=== PATIENT | male | born 2005 | race Hispanic/Latino ===

== ENCOUNTER 2024-06-03 23:49 | Emergency (ER) | payer SELFPAY ==
[2024-06-04 01:03] LABS: SARS-CoV-2 Antigen CONTROL BLUE LINE VIS/BG OK; SARS-CoV-2 Antigen Rapid Res Negative (Negative)
--- NOTE | 2024-06-04 02:11 | RAD REPORT ---
PROCEDURE: XR Chest, 1 View CLINICAL INDICATION: The patient is 18 years old and is Male; Chest pain, cough. TECHNIQUE: Frontal view of the chest. COMPARISON: None. FINDINGS: LUNGS: No discrete focal consolidation. PLEURAL SPACE: No appreciable pleural effusion or pneumothorax. MEDIASTINUM: Nonenlarged cardiomediastinal contour. Prominent right paratracheal knob, with persisten t left-sided aortic knob demonstrated, suspicious for duplicated aortic arch BONES/JOINTS: No acute osseous abnormality. IMPRESSION: 1. No acute cardiopulmonary abnormality. 2. 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 Consider further characterization by nonemergent CTA ch est. Electronically signed by: Jerman Posada MD 06/04/2024 01:21 AM [facility] Due to temporary technical issues with the PACS/First Meta reporting system, reports are being dmitry d by the in-house radiologist without review as a courtesy to ensure prompt reporting the interpreting radiologist is fully responsible for the content of the report. Transcribed Date/Time: 06/04/2024 2:10 AM
--- NOTE | 2024-06-04 02:24 | EDPHYS ---
Physician Documentation [facility] Name: Dave Yoder Age: 18 yrs Sex: Male : 2005 Arrival Date: 06/03/2024 Time: 23:49 Bed DX3 Private MD: ED Physician Matt Villalobos HPI: 06/04 02:19 This 18 yrs old Male presents to ER via Ambulatory with complaints of Cough, bo1 Flu Symptoms. 02:19 The patient or guardian reports cough, Sorethroat. Onset: The symptoms/episode bo1 began/occurred gradually, yesterday. Severity of symptoms: At their worst the symptoms were moderate. Associated signs and symptoms: Pertinent positives: nausea, vomiting, times 1. Exposure to spouse with similar sxs who is here dx with the Flu type A. Historical: - Allergies: 00:25 No Known Allergies; vc1 - Home Meds: 00:25 None [Active]; vc1 - PMHx: 00:25 None; vc1 - PSHx: 00:25 None; vc1 - Immunization history:: Client reports having NOT received the Covid vaccine. Flu vaccine is not up to date. - Infectious Disease History:: Denies. - Social history:: Smoking status: Patient denies any tobacco usage or history of. ROS: 02:20 Constitutional: Negative for weight loss bo1 02:20 Constitutional: Positive for body aches, chills, fever, 02:20 ENT: Positive for sore throat, 02:20 Neck: Negative for pain with movement, pain at rest, 02:20 Cardiovascular: Negative for chest pain, 02:20 Respiratory: Positive for cough, 02:20 Abdomen/GI: Negative for abdominal pain, 02:20 Skin: Negative for rash, 02:20 All other systems are negative, Exam: 02:21 Constitutional: This is a well developed, well nourished patient who is awake, alert, bo1 and in no acute distress. 02:21 Constitutional: The patient appears alert, awake, comfortable, non-toxic, 02:21 Head/face: Exam is negative for acute changes, 02:21 Eyes: Exam is negative for acute changes, 02:21 ENT: Exam is negative for acute changes, Posterior pharynx: erythema, exudate, is not appreciated, 02:21 Neck: External neck: is normal, swelling, is not appreciated, Supple, 02:21 Cardiovascular: Rate: normal, Rhythm: regular, 02:21 Respiratory: the patient does not display signs of respiratory distress, Respirations: normal, Breath sounds: are clear throughout, 02:21 Skin: Exam negative for rash, Vital Signs: 00:23 BP 142 / 93; Pulse 96; Resp 18; Temp 100.7; Pulse Ox 98% ; Weight 99.79 kg; Height 5 vc1 ft. 9 in. ; 00:23 Body Mass Index 32.49 (99.79 kg, 175.26 cm) - Percentile 97.4 % vc1 MDM: 01:04 Medical Screening Exam initiated bo1 02:22 Differential Diagnosis: Influenza Upper Respiratory Infection Viral Syndrome. ED bo1 course: Pt is stable. Spouse with Flu type A and pt will be treated similarly. 02:25 Data reviewed: vital signs, lab test result(s), radiologic studies, plain films. bo1 06/04 00:15 Order name: Flu; Complete Time: 01:12 cp4 06/04 00:15 Order name: SARS RAPID; Complete Time: 01:12 cp4 06/04 00:15 Order name: Strep; Complete Time: 01:12 cp4 06/04 01:06 Order name: Throat Culture EDMS 06/04 00:15 Order name: CXR XRAY cp4 Administered Medications: No medications were administered Disposition Summary: 06/04/24 02:24 Discharge Ordered Notes: Location: Home bo1 Problem: new bo1 Symptoms: are unchanged bo1 Condition: Stable bo1 Diagnosis - Influenza due to identified novel influenza A virus bo1 - Fever, unspecified bo1 Followup: bo1 - With: Private Physician - When: Upon discharge from the Emergency Department - Reason: Recheck today's complaints, Continuance of care Discharge Instructions: - Discharge Summary Sheet bo1 - Fever, Adult bo1 - Influenza, Adult bo1 Forms: - Medication Reconciliation Form bo1 - Antibiotic Education bo1 - Prescription Opioid Use bo1 - Patient Portal Instructions bo1 - Leadership Thank You Letter bo1 Prescriptions: - Tamiflu 75 mg Oral capsule - take 1 tablet ORAL route every 12 hours for 5 days; 10 tablet; Refills: 0, bo1 Product Selection Permitted Signatures: Dispatcher [employer] [facility] Alma Dempsey RN RN vc1 Matt Villalobos MD MD bo1 Corrections: (The following items were deleted from the chart) 00:16 00:16 Influenza Screen (A \T\ B)+BA.LAB.BRZ ordered. EDMS EDMS 00:16 00:16 SARS-COV-2 Antigen Rapid+I.LAB.BRZ ordered. EDMS EDMS 00:16 00:16 Group A Streptococcus Rapid Sc+BA.LAB.BRZ ordered. EDMS EDMS 00:16 00:16 Chest Single View+RAD.RAD.BRZ ordered. EDMS EDMS
--- NOTE | 2024-06-04 02:24 | ER ---
Nurse's Notes [facility] Name: Dave Yoder Age: 18 yrs Sex: Male : 2005 Arrival Date: 06/03/2024 Time: 23:49 Bed DX3 Private MD: Diagnosis: Influenza due to identified novel influenza A virus;Fever, unspecified Presentation: 06/04 00:23 Chief complaint: Patient states: headache, dizzy, vomiting, eyes hurt, chest pain with vc1 cough. Coronavirus screen: Client denies travel out of the [place] in the last 14 days. At this time, the client does not indicate any symptoms associated with coronavirus-19. Ebola Screen: Patient negative for fever greater than or equal to 101.5 degrees Fahrenheit, and additional compatible Ebola Virus Disease symptoms Patient denies exposure to infectious person. Patient denies travel to an Ebola-affected area in the 21 days before illness onset. No symptoms or risks identified at this time. Initial Sepsis Screen: Does the patient meet any 2 criteria? No. Patient's initial sepsis screen is negative. Does the patient have a suspected source of infection? No. Patient's initial sepsis screen is negative. Risk Assessment: Do you want to hurt yourself or someone else? Patient reports no desire to harm self or others. Onset of symptoms was June 02, 2024. Care prior to arrival: None. Activity prior to arrival: vomiting. Mechanism of Injury: No Mechanism of Injury. Transition of care: patient was not received from another setting of care. 00:23 Method Of Arrival: Ambulatory vc1 00:23 Acuity: ZHAO 4 vc1 Triage Assessment: 00:26 General: Appears in no apparent distress. ill, well groomed, well developed, well vc1 nourished, Behavior is calm, cooperative, appropriate for age, Reports fever for feeling ill for 1-2 days. Pain: Complains of pain in throat, head, eyes, chest. EENT: Reports nasal congestion pain when swallowing since pain behind eyes. Neuro: Level of Consciousness is awake, alert, obeys commands, Oriented to person, place, time, situation, Appropriate for age. Cardiovascular: Capillary refill < 3 seconds Patient's skin is warm and dry. Chest pain is described as vague, is aggravated by breathing, coughing. Respiratory: Reports cough that is non-productive, pain with cough Airway is patent Respiratory effort is even, unlabored, Respiratory pattern is regular, symmetrical, Breath sounds are clear bilaterally. the patient has mild shortness of breath. GI: Reports nausea, vomiting. : No deficits noted. No signs and/or symptoms were reported regarding the genitourinary system. Derm: Skin is intact, is healthy with good turgor, Skin is dry, Skin is normal, Skin temperature is warm. Musculoskeletal: Circulation, motion, and sensation intact. Range of motion: intact in all extremities. Historical: - Allergies: 00:25 No Known Allergies; vc1 - Home Meds: 00:25 None [Active]; vc1 - PMHx: 00:25 None; vc1 - PSHx: 00:25 None; vc1 - Immunization history:: Client reports having NOT received the Covid vaccine. Flu vaccine is not up to date. - Infectious Disease History:: Denies. - Social history:: Smoking status: Patient denies any tobacco usage or history of. Screenin:26 [facility] ED Fall Risk Assessment (Adult) History of falling in the last 3 months, vc1 including since admission No falls in past 3 months (0 pts) Confusion or Disorientation No (0 pts) Intoxicated or Sedated No (0 pts) Impaired Gait No (0 pts) Mobility Assist Device Used No (0 pt) Altered Elimination No (0 pt) Score/Fall Risk Level 0 - 2 = Low Risk Oriented to surroundings, Maintained a safe environment, Educated pt \T\ family on fall prevention, incl call for assistance when getting out of bed. Abuse screen: Denies threats or abuse. Nutritional screening: No deficits noted. Tuberculosis screening: No symptoms or risk factors identified. Vital Signs: 00:23 BP 142 / 93; Pulse 96; Resp 18; Temp 100.7; Pulse Ox 98% ; Weight 99.79 kg; Height 5 vc1 ft. 9 in. ; 00:23 Body Mass Index 32.49 (99.79 kg, 175.26 cm) - Percentile 97.4 % vc1 ED Course: 06/03 23:59 Patient arrived in ED. gm2 06/04 00:25 Triage completed. vc1 00:26 Arm band placed on right wrist. vc1 00:28 Patient has correct armband on for positive identification. sitting in diagnostic vc1 chair. Provided Education on: swabs. 00:29 Strep Sent. vc1 00:29 SARS RAPID Sent. vc1 00:29 Flu Sent. vc1 00:41 Strep Sent. vk 00:41 SARS RAPID Sent. vk 00:41 Flu Sent. vk 00:51 CXR XRAY In Process Unspecified. EDMS 01:04 Matt Villalobos MD is Attending Physician. bo1 02:29 No provider procedures requiring assistance completed. Patient did not have IV access vc1 during this emergency room visit. Administered Medications: No medications were administered Medication: 00:29 VIS not applicable for this client. vc1 Outcome: 02:24 Discharge ordered by . bo1 02:29 Discharged to home ambulatory, with significant other, vc1 02:29 Condition: good 02:29 Discharge instructions given to patient, Instructed on discharge instructions, follow up and referral plans. medication usage, Demonstrated understanding of instructions, follow-up care, medications, Prescriptions given X 1, 02:39 Patient left the ED. vc1 Signatures: Dispatcher [employer] [facility] Alma Dempsey RN RN vc1 Adelita Morales 2 Mayuri De Los Santos Matt Villalobos MD MD bo1
[2024-06-04 02:44] VITALS: BP 142/93; TEMP 100.7; O2SAT 98
== END 2024-06-04 02:39 | disposition home or self-care (01) ==
LOC: ER 23:49
DX: J10.1 Influenza due to other identified influenza virus with other respiratory manifestations (principal); Z11.52 Encounter for screening for COVID-19
CPT/HCPCS: 36415; 71045; 87070; 87081; 87804; 87811; 99283

== ENCOUNTER 2024-06-08 22:17 | Emergency (ER) | payer SELFPAY ==
[2024-06-08] MEDS ORDERED: HYDROCODONE/CHLORPHEN 5 ML/OSYR ONE (22:50)
[2024-06-08] MEDS ORDERED: ALBUTEROL 2.5 MG/3 ML NEB SOL ONE (22:51)
[2024-06-08] MEDS ORDERED: ONDANSETRON 4 MG (ODT) TAB ONE (22:51)
[2024-06-08] MEDS ORDERED: IPRATROPIUM BROM 0.5MG/2.5ML ONE (22:51)
[2024-06-09 00:20] LABS: SARS-CoV-2 Antigen CONTROL BLUE LINE VIS/BG OK; SARS-CoV-2 Antigen Rapid Res Negative (Negative)
--- NOTE | 2024-06-09 00:34 | EDPHYS ---
Physician Documentation [facility] Name: Dave Yoder Age: 18 yrs Sex: Male : 2005 Arrival Date: 06/08/2024 Time: 22:17 Bed 23 Private MD: ED Physician Adan Estrada HPI: 06/08 23:00 This 18 yrs old Male presents to ER via Ambulatory with complaints of cp Congestion, Headache, Chest Tightness. 23:00 The patient or guardian reports cough, congestion. cp 23:00 Onset: The symptoms/episode began/occurred 6 day(s) ago. Associated signs and symptoms: cp Pertinent positives: chest pain, with cough, fever, sore throat, headache, Pertinent negatives: diarrhea, vomiting. Severity of symptoms: in the emergency department the symptoms are unchanged despite home interventions. Historical: - Allergies: 22:29 No Known Allergies; me1 - Home Meds: 22:29 None [Active]; me1 - PMHx: 22:29 None; me1 - PSHx: 22:29 None; me1 - Immunization history:: Adult Immunizations up to date. - Infectious Disease History:: Denies. - Social history:: Smoking status: Patient denies any tobacco usage or history of. ROS: 23:05 Constitutional: Positive for body aches, chills, fever, cp 23:05 Eyes: Negative for injury, pain, redness, and discharge, cp 23:05 ENT: Positive for sore throat, Negative for drainage from ear(s), ear pain, difficulty swallowing, difficulty handling secretions, 23:05 Cardiovascular: Positive for chest pain, with cough, 23:05 Respiratory: Positive for cough, 23:05 Abdomen/GI: Positive for nausea and vomiting, Negative for diarrhea, constipation, 23:05 Neuro: Positive for headache, Negative for altered mental status, weakness, 23:05 All other systems are negative, Exam: 23:10 Constitutional: The patient appears in no acute distress, alert, awake, non-toxic, well cp developed, well nourished, obese, 23:10 Head/Face: Normocephalic, atraumatic. cp 23:10 Eyes: Periorbital structures: appear normal, Conjunctiva: normal, no exudate, no injection, Sclera: no appreciated abnormality, Lids and lashes: appear normal, bilaterally, 23:10 ENT: External ear(s): are unremarkable, Ear canal(s): are normal, clear, TM's: dullness, bilaterally, Nose: is normal, Mouth: Lips: moist, Oral mucosa: moist, Posterior pharynx: Airway: no evidence of obstruction, patent, Tonsils: no enlargement, no exudate, erythema, that is mild, exudate, is not appreciated, 23:10 Neck: ROM/movement: Meningeal signs: are not present, nuchal rigidity, is not appreciated, 23:10 Chest/axilla: Inspection: normal, 23:10 Cardiovascular: Rate: normal, Rhythm: regular, 23:10 Respiratory: the patient does not display signs of respiratory distress, Respirations: normal, no use of accessory muscles, no retractions, labored breathing, is not present, Breath sounds: bronchial sounds, that are mild, are heard diffusely, stridor, is not appreciated, wheezing: is not appreciated, 23:10 Abdomen/GI: Inspection: abdomen appears normal, Palpation: abdomen is soft and non-tender, in all quadrants, Vital Signs: 22:25 BP 152 / 90; Pulse 98; Resp 20; Temp 98.6; Pulse Ox 97% ; Weight 106.3 kg; Height 5 ft. me1 7 in. ; Pain 7/10; 22:25 Body Mass Index 36.70 (106.30 kg, 170.18 cm) - Percentile 99.1 % me1 22:25 Pain Scale: Adult me1 MDM: 22:39 Medical Screening Exam initiated cp 23:00 Differential diagnosis: bronchitis, flu, URI, pneumonia. 06/09 00:32 Data reviewed: vital signs, nurses notes, lab test result(s), radiologic studies, plain cp films, and as a result, I will discharge patient. 00:32 I considered the following discharge prescriptions or medication management in the emergency department Medications were administered in the Emergency Department. See MAR. Counseling: I had a detailed discussion with the patient and/or guardian regarding the historical points, exam findings, and any diagnostic results supporting the discharge/admit diagnosis, lab results, radiology results, to return to the emergency department if symptoms worsen or persist or if there are any questions or concerns that arise at home. Response to treatment: the patient's symptoms have mildly improved after treatment, and as a result, I will discharge patient. 06/08 22:47 Order name: Strep; Complete Time: 00:08 cp 06/09 00:08 Interpretation: Reviewed. cp 06/08 22:47 Order name: Influenza Screen (a \T\ B) cp 06/08 22:47 Order name: RSV cp 06/08 22:47 Order name: SARS RAPID; Complete Time: 00:22 cp 06/09 00:22 Interpretation: Reviewed. cp 06/09 00:01 Order name: Throat Culture EDMS 06/08 22:47 Order name: XRAY Chest Pa And Lat (2 Views) cp Administered Medications: 06/08 23:07 Drug: Ondansetron PO 4 mg PO once Route: PO; lg3 23:34 Follow up: Response: No adverse reaction; Marked relief of symptoms; Vomiting decreased lg3 23:07 Drug: Albuterol Inhalation 2.5 mg Inhalation once Route: Inhalation; lg3 23:34 Follow up: Response: No adverse reaction; Marked relief of symptoms lg3 23:07 Drug: Ipratropium Inhalation Aerosol 0.5 mg Inhalation once Route: Inhalation; lg3 23:35 Follow up: Response: No adverse reaction; Marked relief of symptoms lg3 23:07 Drug: Tussionex Pennkinetic ER PO Suspension 5 ml PO once Route: PO; lg3 23:35 Follow up: Response: No adverse reaction; Marked relief of symptoms lg3 Disposition: 06/09 20:48 Co-signature as Attending Physician, Adan Estrada MD I agree with the assessment sp4 and plan of care. I reviewed the patient's care provided by the Advanced Practice Provider and agree with the diagnosis and treatment plan. Disposition Summary: 06/09/24 00:33 Discharge Ordered Notes: Location: Home cp Problem: an ongoing problem cp Symptoms: have improved cp Condition: Stable cp Diagnosis - Cough cp - Acute pharyngitis, unspecified cp Followup: cp - With: Private Physician - When: 2 - 3 days - Reason: Worsening of condition Discharge Instructions: - Discharge Summary Sheet cp - Sore Throat cp - Cool Mist Vaporizer cp - Cough, Adult cp Forms: - Medication Reconciliation Form cp - Antibiotic Education cp - Prescription Opioid Use cp - Patient Portal Instructions cp - Leadership Thank You Letter cp Prescriptions: - Bromfed DM 2-30-10 mg/5 mL Oral syrup - administer 10 milliliter ORAL route every 6-8 hours as needed for cold cp symptoms; 240 milliliter; Refills: 0, Product Selection Permitted - albuterol sulfate 90 mcg/actuation Inhalation HFA Aerosol Inhaler - inhale 1 inhalation INHALATION route every 4 to 6 hours as needed for cp bronchospasm; administer via ventilator; 1 unit; Refills: 0, Product Selection Permitted - Zithromax Z-Deandre 250 mg Oral Tablet - take 1 tablet ORAL route as directed for 5 days Day 1 - take two (2) tablets cp one time. Day 2, 3, 4 , 5 take one (1) tablet once daily.; 6 tablet; Refills: 0, Product Selection Permitted Signatures: Dispatcher [employer] EDMS Maciej Franco PA PA cp Able, Lacie, RN RN lg3 Adan Estrada MD MD sp4 Sneha Weston RN RN me1
--- NOTE | 2024-06-09 00:34 | ER ---
Nurse's Notes [facility] Name: Dave Yoder Age: 18 yrs Sex: Male : 2005 Arrival Date: 06/08/2024 Time: 22:17 Bed 23 Private MD: Diagnosis: Cough;Acute pharyngitis, unspecified Presentation: 06/08 22:25 Chief complaint: Patient states: he came here on 06/02 and was dx w/the flu. C/o me1 congestion, cough, chest tightness, chills, aches, fever and n/v. Today unable to keep anything down. Coronavirus screen: Vaccine status: Patient reports being unvaccinated. Ebola Screen: No symptoms or risks identified at this time. Initial Sepsis Screen: Does the patient meet any 2 criteria? HR > 90 bpm. No. Patient's initial sepsis screen is negative. Risk Assessment: Do you want to hurt yourself or someone else? Patient reports no desire to harm self or others. Onset of symptoms was June 02, 2024. 22:25 Method Of Arrival: Ambulatory sd1 22:25 Acuity: ZHAO 3 me1 Historical: - Allergies: 22:29 No Known Allergies; me1 - Home Meds: 22:29 None [Active]; me1 - PMHx: 22:29 None; me1 - PSHx: 22:29 None; me1 - Immunization history:: Adult Immunizations up to date. - Infectious Disease History:: Denies. - Social history:: Smoking status: Patient denies any tobacco usage or history of. Screenin:05 [facility] ED Fall Risk Assessment (Adult) History of falling in the last 3 months, lg3 including since admission No falls in past 3 months (0 pts) Confusion or Disorientation No (0 pts) Intoxicated or Sedated No (0 pts) Impaired Gait No (0 pts) Mobility Assist Device Used No (0 pt) Altered Elimination No (0 pt) Score/Fall Risk Level 0 - 2 = Low Risk Oriented to surroundings, Maintained a safe environment, Educated pt \T\ family on fall prevention, incl call for assistance when getting out of bed, Assessed \T\ reinforced patient's understanding of fall precautions. Abuse screen: Denies threats or abuse. Denies injuries from another. Nutritional screening: No deficits noted. Tuberculosis screening: No symptoms or risk factors identified. Assessment: 23:05 General: Appears in no apparent distress. uncomfortable, Behavior is calm, cooperative. lg3 Pain: Complains of pain in chest Pain does not radiate. Pain currently is 4 out of 10 on a pain scale. Aggravated by cough. Neuro: No deficits noted. [place] Agitation-Sedation Scale (RASS): 0 - Alert and Calm Level of Consciousness is awake, alert, obeys commands, Oriented to person, place, time, situation. Cardiovascular: No deficits noted. Heart tones S1 S2 present Capillary refill < 3 seconds Clubbing of nail beds is absent JVD is absent Patient's skin is warm and dry. Respiratory: Reports cough that is pain with cough Airway is patent Respiratory effort is even, unlabored, Respiratory pattern is regular, symmetrical, Breath sounds are clear bilaterally. GI: Abdomen is round non-distended, Pt is actively vomiting bile, clear fluid, Reports lower abdominal pain, upper abdominal pain, nausea, vomiting. : No signs and/or symptoms were reported regarding the genitourinary system. EENT: No deficits noted. No signs and/or symptoms were reported regarding the EENT system. Derm: No deficits noted. No signs and/or symptoms reported regarding the dermatologic system. Skin is intact, is healthy with good turgor, Skin is dry, Skin is normal, Skin temperature is warm. Musculoskeletal: No deficits noted. Circulation, motion, and sensation intact. Range of motion: intact in all extremities. 23:43 Reassessment: Patient appears in no apparent distress at this time. Patient and/or jb4 family updated on plan of care and expected duration. Pain level reassessed. Patient is alert, oriented x 3, equal unlabored respirations, skin warm/dry/pink. 06/09 00:55 Reassessment: Patient appears in no apparent distress at this time. Patient and/or jb4 family updated on plan of care and expected duration. Pain level reassessed. Patient is alert, oriented x 3, equal unlabored respirations, skin warm/dry/pink. Vital Signs: 06/08 22:25 BP 152 / 90; Pulse 98; Resp 20; Temp 98.6; Pulse Ox 97% ; Weight 106.3 kg; Height 5 ft. me1 7 in. ; Pain 7/10; 22:25 Body Mass Index 36.70 (106.30 kg, 170.18 cm) - Percentile 99.1 % me1 22:25 Pain Scale: Adult me1 ED Course: 22:19 Patient arrived in ED. gm2 22:24 Maciej Franco PA is PHCP. cp 22:24 Adan Estrada MD is Attending Physician. cp 22:29 Triage completed. me1 22:29 Arm band placed on Patient placed in an exam room. me1 23:02 XRAY Chest Pa And Lat (2 Views) In Process Unspecified. EDMS 23:05 Patient has correct armband on for positive identification. Placed in gown. Bed in low lg3 position. Call light in reach. Side rails up X 1. Client placed on continuous cardiac and pulse oximetry monitoring. NIBP monitoring applied. security monitor on. Door closed. Noise minimized. Warm blanket given. Pillow given. Family accompanied patient. 23:05 SARS RAPID Sent. vk 23:05 RSV Sent. vk 23:05 Influenza Screen (a \T\ B) Sent. vk 23:05 Strep Sent. vk 23:05 COVID swab sent to lab. Flu and/or RSV swab sent to lab. Strep swab sent to lab. vk 23:05 Initial Neb Treatment Given as ordered. Patient maintains SpO2 saturation greater than lg3 95% on room air. 06/09 00:55 Provided Education on: discharge instructions.. jb4 00:55 No provider procedures requiring assistance completed. Patient did not have IV access jb4 during this emergency room visit. Administered Medications: 06/08 23:07 Drug: Ondansetron PO 4 mg PO once Route: PO; lg3 23:34 Follow up: Response: No adverse reaction; Marked relief of symptoms; Vomiting decreased lg3 23:07 Drug: Albuterol Inhalation 2.5 mg Inhalation once Route: Inhalation; lg3 23:34 Follow up: Response: No adverse reaction; Marked relief of symptoms lg3 23:07 Drug: Ipratropium Inhalation Aerosol 0.5 mg Inhalation once Route: Inhalation; lg3 23:35 Follow up: Response: No adverse reaction; Marked relief of symptoms lg3 23:07 Drug: Tussionex Pennkinetic ER PO Suspension 5 ml PO once Route: PO; lg3 23:35 Follow up: Response: No adverse reaction; Marked relief of symptoms lg3 Medication: 06/09 00:55 VIS not applicable for this client. jb4 Outcome: 00:33 Discharge ordered by . cp 00:55 Discharged to home ambulatory, jb4 00:55 Condition: stable 00:55 Discharge instructions given to patient, Instructed on discharge instructions, follow up and referral plans. medication usage, Demonstrated understanding of instructions, follow-up care, medications, Prescriptions given X 3, 00:56 Patient left the ED. jb4 Signatures: Dispatcher [employer] EDMS Maciej Franco PA PA cp Bryson, James RN RN jb4 Mera Banerjee RN RN lg3 Sneha Weston RN RN me1 Adelita Morales gm2 Mayuri De Los Santos
[2024-06-09 01:01] VITALS: BP 152/90; TEMP 98.6; O2SAT 97
--- NOTE | 2024-06-09 06:10 | RAD REPORT ---
EXAM DESCRIPTION: Chest Pa And Lat (2 Views) [facility]: XR CHEST 2 VIEWS CLINICAL HISTORY: 18 years Male, Cough;Hemoptysis COMPARISON: 06/04/2024 FINDINGS: PA and lateral upright views of the chest. Trachea is midline. Normal size of the cardiac silhouette. No pulmonary vascular congestion. No focal consolidation, pleural effusion, or pneumothorax. Stable appearance of the mediastinal contours. No acute osseous abnormality. IMPRESSION: No acute radiographic abnormality. Electronically signed by: Ilana Raphael MD 06/08/2024 11:58 PM [facility] Due to temporary technical issues with the PACS/Proformative reporting system, reports are being dmitry d by the in-house radiologist without review as a courtesy to ensure prompt reporting the interpreting radiologist is fully responsible for the content of the report. Transcribed Date/Time: 06/09/2024 6:10 AM
== END 2024-06-09 00:56 | disposition home or self-care (01) ==
LOC: ER 22:17
DX: R05.9 Cough, unspecified (principal); J02.9 Acute pharyngitis, unspecified; Z11.52 Encounter for screening for COVID-19
CPT/HCPCS: 36415; 71046; 87070; 87081; 87804; 87807; 87811; 94640; 99285; J7613; J7644; Q0162